=== PATIENT | male | born 1955 | race African-American/Black ===

== ENCOUNTER 2024-03-11 15:51 | Outpatient (REF) | payer MEDICARE, SELFPAY ==
[2024-03-11 17:27] LABS: MANUAL DIFF FLAG NO
[2024-03-11 17:37] LABS: Basophils Absolute Auto 0.1 X10*3/uL (0.0-0.2); Basophils Percent Auto 1.2 % (0-2); Eosinophils Absolute Auto 0.2 X10*3/uL (0.0-0.4); Eosinophils Percent Auto 3.3 % (0-4); Hematocrit 30.7 % (42.0-52.0); Hemoglobin 9.7 g/dl (14.0-18.0); Imm Gran Abs Auto 0.01 X10*3/uL (0.00-0.03); Imm Gran Pct Auto 0.2 % (0.0-0.4); Lymphocytes Absolute Auto 1.5 X10*3/uL (1.2-4.9); Lymphocytes Percent Auto 22.7 % (20-40); Mean Corpuscular HGB Conc 31.6 g/dl (31.0-36.0); Mean Corpuscular Hemoglobin 25.3 pg (27.0-33.0); Mean Corpuscular Volume 79.9 fL (80.0-98.0); Mean Platelet Volume 9.8 fL (9.4-12.4); Monocytes Absolute Auto 0.7 X10*3/uL (0.1-1.2); Monocytes Percent Auto 10.2 % (2-11); Neutrophils Absolute Auto 4.1 x10*3/uL (2.0-8.3); Neutrophils Percent Auto 62.4 % (45-73); Platelet Count 456 X10*3/uL (160-400); Red Blood Count 3.84 X10*6/uL (4.60-5.80); Red Cell Distribution Width 19.8 % (11.0-16.0); White Blood Count 6.6 X10*3/uL (4.8-10.8)
[2024-03-11 17:46] LABS: C Reactive Protein < 0.10 mg/dL (< or = 0.50); Uric Acid 4.2 mg/dL (3.4-7.0)
[2024-03-11 18:28] LABS: Erythrocyte Sedimentation Rate 30 MM/HR (0-15)
== END 2024-03-11 15:52 | disposition home or self-care (01) ==
LOC: HO.CHCLDS 15:51
PROVIDERS: Visit Provider Internal Medicine
DX: M25.572 Pain in left ankle and joints of left foot (principal)
CPT/HCPCS: 36415; 84550; 85025; 85652; 86140

== ENCOUNTER 2024-03-18 15:40 | Outpatient (REF) | payer MEDICARE, SELFPAY ==
[2024-03-18 17:28] LABS: Immature Retic Fraction 20.9 % (2.3-13.4); Retic HGB Equivalent 25.8 pg (30.0-35.0); Reticulocyte Percent 1.1 % (0.5-1.8); Reticulocytes Absolute 0.041 X10*6/uL (0.026-0.095)
[2024-03-18 17:44] LABS: Iron 16 mcg/dL (45-160); Percent Iron Saturation 4 % (15-50); Total Iron Binding Capacity 383 mcg/dL (228-428); Unsaturated Iron Binding 367 ug/dL
[2024-03-18 17:58] LABS: Ferritin 8 ng/mL (20-250)
[2024-03-18 18:13] LABS: Folate 12.2 ng/mL (> or = 4.0); Vitamin B12 704 pg/mL (200-900)
== END 2024-03-18 15:41 | disposition home or self-care (01) ==
LOC: HO.CHCLDS 15:40
PROVIDERS: Visit Provider Internal Medicine
DX: D50.9 Iron deficiency anemia, unspecified (principal)
CPT/HCPCS: 36415; 82607; 82728; 82746; 83540; 85045

== ENCOUNTER 2024-03-21 10:18 | Outpatient (REF) | payer MEDICARE, SELFPAY ==
--- NOTE | ~2024-03-21 | XR_ITS ---
EXAMINATION: XR ANKLE, LEFT CLINICAL INFORMATION: Left ankle pain, cramping, swelling, toes are numb. COMPARISON: None available. TECHNIQUE: AP, lateral, and mortise views of the left ankle. FINDINGS: Mild hypertrophic change along the posterior aspect of the calcaneus. Soft tissue swelling. Tiny faint calcific/ossific densities along the dorsal aspect of the talar neck and navicular of indeterminate age and etiology. Ankle mortise is preserved. XR/XR ankle LT min 3V IMPRESSION: Tiny faint calcific/ossific densities along the dorsal aspect of the talar neck and navicular of indeterminate age and etiology. This study was presented today March 21, 2024 for interpretation. Stat results provided at this time as requested by referring provider. Electronically signed by: Jazzy Walker MD 03/21/2024 01:07 PM EDT
== END 2024-03-21 10:19 | disposition home or self-care (01) ==
LOC: HO.HHCX 10:18
PROVIDERS: Visit Provider Internal Medicine
DX: M25.572 Pain in left ankle and joints of left foot (principal)
CPT/HCPCS: 73610

== ENCOUNTER 2024-04-04 12:09 | Outpatient (REF) | payer MEDICARE, SELFPAY | END 2024-04-04 12:10 | disposition home or self-care (01) | LOC: HO.HMGCX 12:09 | PROVIDERS: PCP Internal Medicine; Visit Provider Internal Medicine | DX: N28.89 Other specified disorders of kidney and ureter (principal) | CPT/HCPCS: 76775 ==

== ENCOUNTER 2024-05-24 12:36 | Outpatient (REF) | payer MEDICARE, SELFPAY ==
[2024-05-24 14:56] LABS: Anion Gap 11 (12-20); Blood Urea Nitrogen 11 mg/dL (9-16); Calcium 9.5 mg/dL (8.4-10.2); Carbon Dioxide 29 mmol/L (22-29); Chloride 108 mmol/L (96-108); Estimated Glomerular Filt Rate > 60; Glucose Random 101 mg/dL (60-115); Potassium 3.9 mmol/L (3.3-5.1); Sodium 144 mmol/L (135-145)
== END 2024-05-24 12:37 | disposition home or self-care (01) ==
LOC: HO.CHCLDS 12:36
PROVIDERS: Visit Provider Internal Medicine
DX: N28.1 Cyst of kidney, acquired (principal)
CPT/HCPCS: 36415; 80048

== ENCOUNTER → 2024-06-20 10:51 | Outpatient (REF) | payer MEDICARE, SELFPAY ==
--- NOTE | 2024-06-20 10:55 | CA_ITS ---
Transthoracic Echocardiogram Patient (Last, First, Middle): Kris Mitchell W Gender: Male Date of : 1955 Age: 69 Procedure Date: 06/20/2024 Procedure Type: Transthoracic Echocardiogram Location: OP Height: 185.42 cm Weight: 60.78 kg BSA: 1.82 m2 Heart Rate: 81 bpm BP: 140 / 80 mmHg [facility] Physician: SB Referring MD: Abida Cordova MD Wood Machine Carver: Mehdi Humphrey MD Symptoms: BI LAT LOWER LIMB EDEMA Study Quality: Adequate ECG Rhythm: Sinus Conclusions: - 1. Normal LV ejection fraction of 65-70% 2. Normal cardiac valvular Dopplers 3. Normal RV systolic pressure 4. No gross pericardial effusion Findings Left Ventricle Normal left ventricular size, thickness, and systolic function. The visually estimated ejection fraction is between 65-70%. Spectral Doppler is indicative of a normal filling pattern. Right Ventricle Normal right ventricular cavity size and systolic function. Atria Both atria are normal in size. There is an interatrial septal aneurysm seen bowing to the right. There is a mobile atrial septum noted. Interatrial shunt cannot be excluded. Aortic Valve Normal aortic valve structure and function. There is no aortic valve stenosis. There is no aortic valve regurgitation. Mitral Valve Normal mitral valve structure and function. There is trace mitral valve regurgitation. There is no mitral valve stenosis. Pulmonic Valve The pulmonic valve is likely normal. Tricuspid Valve Normal tricuspid valve structure. There is mild tricuspid valve regurgitation. The right ventricular systolic pressure is normal. The right ventricular systolic pressure is 30 mmHg. Normal right atrial pressure. There is no evidence of pulmonary hypertension. Great Vessels All visible segments of the aorta are normal in size. The pulmonary artery was not well visualized. There is no dilatation of the ascending aorta measuring 2.80 cm. Venous The inferior vena cava is normal in size and collapses greater than 50% with inspiration. Pericardium/Pleural There is no evidence of pericardial effusion. Prior Study Comparison No prior study available for comparison. Recommendations, Care & Conclusions Recommend contrast study to evaluate intracardiac shunting. Measurements 2D Linear Measurements IVSd: 1.00 0.6-0.9/0.6-1.0 cm LVIDd: 4.15 3.9-5.3/4.2-5.9 cm LVIDd Index: 2.28 2.4-3.2/2.2-3.1 cm/m2 LVIDs: 2.99 2.0-3.6 cm LVPWd: 0.84 0.7-1.1 cm LA Diam: 3.00 2.7-3.8/3.0-4.0 cm LAIDs Index: 1.65 1.5-2.3 cm/m2 LV Mass: 149.41 67-162/88-224 g LV Mass Index: 82.09 43-95/49-115 g/m2 LVOT Diam: 1.90 3.0+(-)1.3 cm 2D Systolic Function EF 4C: 64.40 >55% EF 2C: 73.90 >55% EF BiP: 69.80 >55% Mitral Valve MV Pk E: 0.75 MV PK A: 0.54 MV Decel Time: 223.00 E/A: 1.40 E'Lateral: 8.59 E'Medial: 7.18 E/E' Med: 10.40 E/E' Lat: 8.70 PHT: 65.00 MVA PHT: 3.38 Decel [place]: 3.36 Aortic Valve AoV Pk Ranulfo: 1.07 AoV Pk Grad: 5.00 MAXIME: 2.62 LVOT LVOT Pk Ranulfo: 0.98 LVOT Mn Ranulfo: 0.64 LVOT VTI: 0.19 LVOT Pk Grad: 4.00 LVOT Mn Grad: 2.00 LVOT Diam: 1.90 LVOT Area: 2.84 Diastolic Function MV Pk E: 0.75 MV Pk A: 0.54 E/A: 1.40 E'Medial: 7.18 E/E' Med: 10.40 E' Laterial: 8.59 E/E' Lat: 8.70 Right Ventricle TAPSE (mm): 26.10 TVS' Ranulfo: 13.60 Tricuspid Valve TR Pk Ranulfo: 2.60 TR Pk Grad: 27.00 RA Press: 3.00 RVSP: 30.00 Great Vessels Aorta Sinus of Valsalva: 3.10 2.0-3.5 cm Ao Asc: 2.80 2.1-3.4 cm Pulmonary Valve PV Pk Ranulfo: 1.32 Peak PV Grad: 7.00 Updated in Other Vendor System with Status of Final Mehdi Humphrey MD electronically signed on 06/21/2024 4:48:43 PM with status of Final
== END ==
LOC: HO.CARD 10:51
PROVIDERS: Visit Provider Internal Medicine
DX: R60.0 Localized edema (principal)
CPT/HCPCS: 93306

== ENCOUNTER → 2024-06-20 10:55 | Outpatient (BNV) | payer MEDICARE, SELFPAY | PROVIDERS: Visit Provider Internal Medicine Cardiovascular Disease | DX: Q21.19 Other specified atrial septal defect (principal); I25.3 Aneurysm of heart; I36.1 Nonrheumatic tricuspid (valve) insufficiency | CPT/HCPCS: 93303; 93320; 93325 ==

== ENCOUNTER 2024-08-26 14:00 | Outpatient (REF) | payer MEDICARE, SELFPAY ==
[2024-08-26 17:58] LABS: MANUAL DIFF FLAG NO
[2024-08-26 18:04] LABS: Basophils Percent Auto 0.4 % (0-2); Eosinophils Percent Auto 0.3 % (0-4); Hematocrit 31.7 % (42.0-52.0); Hemoglobin 10.7 g/dl (14.0-18.0); Imm Gran Abs Auto 0.02 X10*3/uL (0.00-0.03); Imm Gran Pct Auto 0.2 % (0.0-0.4); Lymphocytes Percent Auto 11.3 % (20-40); Mean Corpuscular HGB Conc 33.8 g/dl (31.0-36.0); Mean Corpuscular Hemoglobin 31.3 pg (27.0-33.0); Mean Corpuscular Volume 92.7 fL (80.0-98.0); Mean Platelet Volume 10.1 fL (9.4-12.4); Monocytes Absolute Auto 0.7 X10*3/uL (0.1-1.2); Monocytes Percent Auto 8.2 % (2-11); Neutrophils Absolute Auto 7.1 x10*3/uL (2.0-8.3); Neutrophils Percent Auto 79.6 % (45-73); Platelet Count 436 X10*3/uL (160-400); Red Blood Count 3.42 X10*6/uL (4.60-5.80); Red Cell Distribution Width 17.2 % (11.0-16.0); White Blood Count 8.9 X10*3/uL (4.8-10.8)
[2024-08-26 18:16] LABS: Alanine Aminotransferase 34 U/L (0-40); Albumin Level 3.6 g/dL (3.5-5.0); Alkaline Phosphatase 43 U/L (39-117); Anion Gap 10 (12-20); Aspartate Amino Transferase 38 U/L (5-37); Bilirubin Total 0.3 mg/dL (0.0-1.0); Blood Urea Nitrogen 24 mg/dL (9-16); Calcium 9.3 mg/dL (8.4-10.2); Carbon Dioxide 27 mmol/L (22-29); Chloride 107 mmol/L (96-108); Estimated Glomerular Filt Rate > 60; Glucose Random 111 mg/dL (60-115); Potassium 3.7 mmol/L (3.3-5.1); Sodium 140 mmol/L (135-145)
== END 2024-08-26 14:01 | disposition home or self-care (01) ==
LOC: HO.CHCLDS 14:00
PROVIDERS: Visit Provider Internal Medicine
DX: I73.9 Peripheral vascular disease, unspecified (principal); R63.6 Underweight
CPT/HCPCS: 36415; 80053; 85025

== ENCOUNTER 2024-10-17 11:39 | Outpatient (REF) | payer MEDICARE, SELFPAY ==
--- OUTSIDE RECORDS SUMMARY | 2024-10-17 12:26 | XMS_ITS | Clinical Summary ---
Author Organization [employer] Address [address] [facility] [address] [place] [address] Care Team Providers Care Credit Report Checker Name Role Phone Abida Cordova MD Primary Care Provider +1- [phone] Allergies No known active allergies Medications Blood Pressure kitIndications: Elevated BP without diagnosis of hypertension BP check daily. Keep the log for the next visit. 1 kit 03/11/20 Active doxepin (SINEquan) 10 MG capsuleIndicati ons:Primary insomnia Take 1 capsule (10 mg) by mouth at bedtime. 30 capsule 03/18/20 24 025 Active gabapentin (Neurontin) 100 MG capsuleIndicati ons:Neural foraminal stenosis of lumbar spine Take 2 capsules (200 mg) by mouth 2 times daily. 120 capsule 11 05/24/20 24 025 Active aspirin 81 MG EC tabletIndicatio ns:Claudication (CMS/HCC) Take 1 tablet (81 mg) by mouth Once per day. 30 tablet 07/07/19 25 026 Active cilostazol (Pletal) 100 MG tabletIndicatio ns:Claudication (CMS/HCC) Take 1 tablet (100 mg) by mouth 2 times daily. 60 tablet 07/07/19 25 026 Active amLODIPine (Norvasc) 5 MG tabletIndicatio ns:Primary hypertension Take 1 tablet (5 mg) by mouth Once per day. 30 tablet 11 07/07/19 25 026 Active ferrous sulfate 324 (65 Fe) MG EC tabletIndicatio ns:Other iron deficiency anemia TAKE 1 TABLET (324 MG) BY MOUTH WITH BREAKFAST. 30 tablet 3 07/19/19 25 Active Nutritional Supplements (Ensure)Indicat ions:Underweigh t 237 ml 2 times a day 29338 mL 12 09/22/19 25 Active tiZANidine (Zanaflex) 4 MG tabletIndicatio ns:Neural foraminal stenosis of lumbar spine Take 1 tablet (4 mg) by mouth every 8 (eight) hours if needed for muscle spasms. 60 tablet 3 09/22/19 25 Active Hydroactive Dressings (DynaDerm Hydrocolloid 2 x2 ) miscIndications :Pressure injury of right hip, stage 1 Apply 1 each topically every other day. To apply to the right hip on the wound after cleansing with normal saline every other day 30 each 1 08/27/19 25 Active tiZANidine (Zanaflex) 4 MG tabletIndicatio ns:Neural foraminal stenosis of lumbar spine Take 0.5 tablets (2 mg) by mouth every 8 (eight) hours if needed for muscle spasms. 90 tablet 3 08/27/19 25 Active oxyCODONE-aceta minophen (Percocet) 10-325 MG tabletIndicatio ns:Neural foraminal stenosis of lumbar spine Take 1 tablet by mouth every 6 (six) hours if needed for severe pain for up to 10 days. 40 tablet 10/12/19 25 025 Active traMADol (Ultram) 50 MG tabletIndicatio ns:Neural foraminal stenosis of lumbar spine Take 1 tablet (50 mg) by mouth every 8 (eight) hours if needed for severe pain. 40 tablet 08/23/19 25 025 Discontinued bisacodyl (Dulcolax) 5 MG EC tabletIndicatio ns:Drug-induced constipation Take 1 tablet (5 mg) by mouth if needed each day for constipation . Do not crush, chew, or split. 30 tablet 08/27/19 25 025 traMADol (Ultram) 50 MG tabletIndicatio ns:Neural foraminal stenosis of lumbar spine Take 1 tablet (50 mg) by mouth every 6 (six) hours if needed for severe pain. 45 tablet 09/06/19 25 025 Discontinued( erapy completed) oxyCODONE-aceta minophen (Percocet) 10-325 MG tabletIndicatio ns:Claudication (CMS/HCC),Sciat ica, left side Take 1 tablet by mouth every 6 (six) hours if needed for severe pain for up to 5 days. 15 tablet 09/16/19 25 025 Discontinued(Re order (will not trigger notification to Pharmacy)) oxyCODONE-aceta minophen (Percocet) 10-325 MG tabletIndicatio ns:Claudication (CMS/HCC),Sciat ica, left side Take 1 tablet by mouth every 8 (eight) hours if needed for severe pain for up to 10 days. 30 tablet 09/23/19 25 025 Active Problems Patient Care Coordination No te Formatting of this note migh t be different from the original. Problem Noted Date Diagnosed Date Primary hypertension 05/24/2024 Microcytic anemia 03/18/2024 Sciatica, left side 03/11/2024 Encounters Date Type Department Care Team Description 10/11/2024 Orders Only [facility] [address] [place] [address] Abida Cordova MD Neural foraminal stenosis of lumbar spine (Primary Dx) 10/03/2024 Orders Only [facility] [address] [place] [address] Abida Cordova MD PVD (peripheral vascular disease) with claudication (CMS/HCC) (Primary Dx) 10/03/2024 Telephone [facility] [address] [place] [phone] Abida Cordova MD Med Refill 09/29/2024 Telephone [facility] [address] [place] [address] Abida Cordova MD Pre op 09/22/2024 Telephone [facility] [address] [place] [address] Abida Brennan MD Med Refill 09/15/2024 Orders Only [facility] [address] [place] [address] Abida Cordova MD Claudication (CMS/HCC); Sciatica, left side 09/15/2024 Telephone [facility] [address] [place] [address] Abida Cordova MD Medication Question 09/13/2024 3:15 PM EDT Office Visit [facility] [address] [place] [address] Abida Cordova MD Claudication ([facility]) (Primary Dx); Sciatica, left side 09/13/2024 Travel 09/08/[address] [address] Abida Cordova MD Nurse Triage 09/06/[address] [address] Abida Cordova MD FMLA 09/05/2024 Refill [facility] [address] [place] [address] Abida Cordova MD Neural foraminal stenosis of lumbar spine 09/03/2024 Refill [facility] [address] [place] [address] Abida Cordova MD Neural foraminal stenosis of lumbar spine 08/30/2024 Telephone [facility] [address] [place] [address] Abida Cordova MD BHS Cancelled Appt 08/26/2024 1:30 PM EDT Office Visit [facility] [address] [place] [address] Abida Cordova MD Claudication ([facility]) (Primary Dx); Low weight; Microcytic anemia; Drug-induced constipation; Pressure injury of right hip, stage 1; Neural foraminal stenosis of lumbar spine; Primary hypertension 08/26/2024 Travel 08/22/2024 Travel 08/22/2024 Refill [facility] [address] [place] [address] Abida Cordova MD Neural foraminal stenosis of lumbar spine 08/22/2024 Orders Only [facility] [address] [place] [address] Abida Cordova MD Underweight (Primary Dx); Neural foraminal stenosis of lumbar spine 08/22/2024 Telephone [facility] [address] [place] [address] Abida Cordova MD Medication Question 08/21/2024 Refill [facility] [address] [place] [address] Abida Cordova MD Neural foraminal stenosis of lumbar spine 08/20/2024 Refill [facility] [address] [place] [address] Abida Cordova MD Neural foraminal stenosis of lumbar spine 08/19/2024 Refill [facility] [address] [place] [address] Abida Cordova MD Neural foraminal stenosis of lumbar spine 08/12/2024 Telephone [facility] [address] [place] [address] Ann Marie Salazar, DANNY 08/12/2024 Refill [facility] [address] [place] [address] Abida Cordova MD Neural foraminal stenosis of lumbar spine 08/10/[address] [address] Abida Cordova MD Med Refill 08/10/2024 Refill [facility] [address] [place] [address] Abida Cordova MD Neural foraminal stenosis of lumbar spine 08/08/2024 Telephone [facility] [address] [place] [address] Abida Cordova MD Med Refill; chain splitter 08/08/2024 Refill [facility] [address] [place] [address] Abida Cordova MD Neural foraminal stenosis of lumbar spine 07/23/2024 Refill [facility] [address] [place] [address] Abida Cordova MD Neural foraminal stenosis of lumbar spine from Last 3 Months Immunizations Immunization Administration Dates Next Due Tdap 03/11/2024 Social History Tobacco Use Types Packs/Day Years Used Date Smoking Tobacco: Never Smokeless Tobacco: Never Tobacco Cessation:Counseling Given: Not Answered Depression Answer Date Recorded Patient Health Questionnaire-9 Score 0 08/26/2024 Patient Health Questionnaire-9 Score 0 08/26/2024 Last PHQ-9: Questionnaire Data Not on file 0 08/26/2024 Housing Stability Answer Date Recorded What is your housing situation today? I have magdalena acuna 08/26/[address] you li ve. Do you have problems with any of the following? None of the above 08/26/2024 Food Insecurity Answer Date Recorded Within the past 12 months, y ou worried that your food would run out before you got money to buy more: Never True 08/26/2024 Within the past 12 months,th e food you bought just didn't last and you didn't have enough money to get more: Never True Transportation Answer Date Recorded In the past 12 months, has l ack of transportation kept you from medical appts, meetings, work or from getting things needed for daily living? No 08/26/2024 Utilities Answer Date Recorded In the past 12 months, has t he electric, gas, oil or water company threatened to shut off services in your home? No 08/26/2024 Depression Answer Date Recorded Patient Health Questionnaire-2 Score 0 08/26/2024 Internet Access Answer Date Recorded Internet Access Q1 Yes 08/26/2024 Internet Access Q2 Not on file 08/26/2024 Sex and Gender Information Value Date Recorded Sex Assigned at Male 02/09/2024 9:02 AM EDT Legal Sex Male 8:56 AM EDT Gender Identity Male 02/09/2024 9:02 AM EDT Sexual Orientation Straight 02/09/2024 9: 02 AM EDT Last Filed Vital Signs Vital Sign Reading Time Taken Comments Blood Pressure 147/90 09/13/2024 3:34 PM EDT Pulse 134 09/13/2024 3:34 PM EDT Temperature 36.7 ??C (98 ??F) 09/13/2024 3:34 PM EDT Respiratory Rate 20 09/13/2024 3:34 PM EDT Oxygen Saturation 95% 09/13/2024 3:34 PM EDT Inhaled Oxygen Concentration - - Weight 54.4 kg (120 lb) 09/13/2024 3:34 PM EDT Height 185.4 cm (6' 1 ) 09/13/2024 3:34 PM EDT Body Mass Index 15.83 09/13/2024 3:34 PM EDT Plan of Treatment Upcoming Encounters Date Type Department Care Team (Late st Contact Info) Description 10/27/2024 9:30 AM EDT Office Visit [facility] [address] [place] [address] Arianna Castro MD [address] [place] [address] 11/14/2024 3:30 PM EDT Office Visit [facility] [address] [place] [address] Abida Cordova MD [address] [place] [address] Health Maintenance Due Date Last Done Comments CT Colonography 1955 Colonoscopy 1955 Colorectal Cancer Screening 1955 FIT DNA/Cologuard 1955 FIT 1955 FOBT 1955 Lipid Panel 1955 Sigmoidoscopy 1955 Hepatitis C Screening 1971 Zoster Vaccines (1 of 2) 2003 Influenza Vaccine (#1) 2024 Postp oned from 01/31/2024 (Patient Refused) COVID-19 Vaccine (3 - 2023-2 5 season) 2025 10/14/2020, 09/23/2020 Postponed from 01/31/2024 (Patient Refused) Pneumococcal Vaccine: 50+ Years (1 of 1 - PCV) 03/11/2025 Postponed from 10/2002 (Patient Refused) Alcohol/Substance Use Screening 08/26/2025 08/26/2024 Depression Screening 08/26/2025 08/26/2024, 08/26/2024 SDOH Screening 08/26/2025 08/26/2024 Tobacco Screening 09/13/2025 09/13/2024 RSV Patients and Patients Aged 60 years or older (1 - 1-dose 75+ series) 02/05/2028 DTaP/Tdap/Td Vaccines (2 - T d or Tdap) 03/11/2034 03/11/2024 HIB Vaccines Aged Out No longer eligi ble based on patient's age to complete this topic HPV Vaccines Aged Out No longer eligi ble based on patient's age to complete this topic Hepatitis A Vaccines Aged Out No long er eligible based on patient's age to complete this topic Hepatitis B Vaccines Aged Out No long er eligible based on patient's age to complete this topic IPV Vaccines Aged Out No longer eligi ble based on patient's age to complete this topic Meningococcal B Vaccine Aged Out No l onger eligible based on patient's age to complete this topic Meningococcal Vaccine Aged Out No sam nick eligible based on patient's age to complete this topic RSV under 20 months Aged Out No longe r eligible based on patient's age to complete this topic Rotavirus Vaccines Aged Out No longer eligible based on patient's age to complete this topic Procedures Procedure Name Priority Date/Time Associated Diagnosis Comments COMPREHENSIVE METABOLIC PANEL Routine 08/26/2024 2:01 PM EDT Claudication (CMS/HCC) Low weight CBC WITH AUTO DIFFERENTIAL Routine 08/26/2024 2:01 PM EDT Claudication (CMS/HCC) Low weight from Last 3 Months Results * (ABNORMAL) CBC auto differential (08/26/2024 2:01 PM EDT) White Blood Count 8.9 4.8 - 10.8 X10*3/uL [facility] Red Blood Count 3.42(L) 4.60 - 5.80 X10*6/uL [facility] Hemoglobin 10.7(L) 14.0 - 18.0 g/dl [facility] Hematocrit 31.7(L) 42.0 - 52.0 % [facility] Mean Corpuscular Volume 92.7 80.0 - 98.0 fL [facility] Mean Corpuscular Hemoglobin 31.3 27.0 - 33.0 pg [facility] Mean Corpuscular HGB Conc 33.8 31.0 - 36.0 g/dl [facility] Red Cell Distribution Width 17.2(H) 11.0 - 16.0 % [facility] Platelet Count 436(H) 160 - 400 X10*3/uL [facility] Mean Platelet Volume 10.1 9.4 - 12.4 fL [facility] Neutrophils Percent Auto 79.6(H) 45 - 73 % [facility] Imm Gran Pct Auto 0.2 0.0 - 0.4 % [facility] Lymphocytes Percent Auto 11.3(L) 20 - 40 % [facility] Monocytes Percent Auto 8.2 2 - 11 % [facility] Eosinophils Percent Auto 0.3 0 - 4 % [facility] Basophils Percent Auto 0.4 0 - 2 % [facility] NRBC Pct Auto 0.0 0.0 - 0.2 /100WBC [facility] Neutrophils Absolute Auto 7.1 2.0 - 8.3 x10*3/uL [facility] Imm Gran Abs Auto 0.02 0.00 - 0.03 X10*3/uL [facility] Lymphocytes Absolute Auto 1.0(L) 1.2 - 4.9 X10*3/uL [facility] Monocytes Absolute Auto 0.7 0.1 - 1.2 X10*3/uL [facility] Eosinophils Absolute Auto 0.0 0.0 - 0.4 X10*3/uL [facility] Basophils Absolute Auto 0.0 0.0 - 0.2 X10*3/uL [facility] NRBC Abs Auto 0.000 0.0 - 0.012 X10*3/uL [facility] Blood Venous blood specimen / Unknown 08/26/2024 2:01 PM EDT 08/26/2024 5:57 PM EDT us Abida Cordova MD LAB BLOOD ORDERABLES Final Result Performing Organization Address City/[facility]/ZIP Co de Phone Number [facility] [address] [place] [address] [phone] * (ABNORMAL) Comprehensive Metabolic Panel (08/26/2024 2:01 PM EDT) Sodium 140 135 - 145 mmol/L [facility] Potassium 3.7 3.3 - 5.1 mmol/L [facility] Chloride 107 96 - 108 mmol/L [facility] Carbon Dioxide 27 22 - 29 mmol/L [facility] Anion Gap 10(L) 12 - 20 [facility] Urea Nitrogen (BUN) 24(H) 9 - 16 mg/dL [facility] Creatinine, Serum 0.82 0.5 - 1.4 mg/dL [facility] Estimated Glomerular Filt Rate >60 [facility] Comment:Chronic Kidney Disea se: Estimated GFR < 60 mL/min/[id number] Kidney Disease: Estimated GFR < 15 mL/min/1.73m2 Glucose 111 60 - 115 mg/dL [facility] Calcium 9.3 8.4 - 10.2 mg/dL [facility] Bilirubin, Total 0.3 0.0 - 1.0 mg/dL [facility] Aspartate Amino Transferase 38(H) 5 - 37 U/L [facility] Alanine Aminotransferase 34 0 - 40 U/L [facility] Total Protein 7.0 6.5 - 8.0 g/dL [facility] Albumin Level 3.6 3.5 - 5.0 g/dL [facility] Alkaline Phosphatase 43 39 - 117 U/L [facility] Blood Venous blood specimen / Unknown 08/26/2024 2:01 PM EDT 08/26/2024 5:57 PM EDT us Abida Cordova MD LAB BLOOD ORDERABLES Final Result [facility] [address] [place] [address] [phone] from Last 3 Months Insurance [facility] MEDICARE REPLACEMENT PPO Care Teams Credit Report Checker Relationship Specialty Start Date End Date Abida Cordova MD [address] [place] [id number] PCP - General Internal Medicine 03/11/24
--- OUTSIDE RECORDS SUMMARY | 2024-10-17 12:26 | XMS_ITS | Encounter Summary ---
Author Organization [facility] Address [address] [place] [address] [address] [address] Care Team Providers Care Garment Parts Cutter Hand Name Role Phone Abida Cordova MD Primary Care Provider [phone]- [phone] Reason for Visit * Reason Onset Date Comments Med Refill 06/13/2024 Encounter Details Date Type Department Care Team (Late st Contact Info) Description 06/13/2024 Refill [facility] [address] [place] [address] Abida Cordova MD [address] [place] [address] Neural foraminal stenosis of lumbar spine Social History Tobacco Use Types Packs/Day Years Used Date Smoking Tobacco: Never Smokeless Tobacco: Never Sex and Gender Information Value Date Recorded Sex Assigned at Male 02/09/2024 9:02 AM EDT Legal Sex Male 8:56 AM EDT Gender Identity Male 02/09/2024 9:02 AM EDT Sexual Orientation Straight 02/09/2024 9: 02 AM EDT documented as of this encounter Plan of Treatment Upcoming Encounters Date Type Department Care Team (Late st Contact Info) Description 10/27/2024 9:30 AM EDT Office Visit [facility] [address] [place] [address] Arianna Castro MD [address] [place] [address] 11/14/2024 3:30 PM EDT Office Visit [facility] [address] [place] [address] Abida Cordova MD [address] [place] [address] documented as of this encounter Visit Diagnoses Diagnosis Neural foraminal stenosis of lumbar spine documented in this encounter Care Teams Garment Parts Cutter Hand Relationship Specialty Start Date End Date Abida Cordova MD [address] [place] [address] PCP - General Internal Medicine 03/11/24 documented as of this encounter
--- OUTSIDE RECORDS SUMMARY | 2024-10-17 12:26 | XMS_ITS | Encounter Summary ---
Author Organization [facility] Address [address] [place] [address] [address] [address] Care Team Providers Care Deaf And Hard Of Hearing Teacher Name Role Phone Abida Cordova MD Primary Care Provider +1- [phone] Reason for Visit * Reason Onset Date Comments Med Refill 06/26/2024 Encounter Details Date Type Department Care Team (Late st Contact Info) Description 06/26/2024 Refill [facility] [address] [place] [address] Abida Cordova MD [address] [place] [address] Neural foraminal stenosis of lumbar spine Social [...] Description 10/27/2024 9:30 AM EDT Office Visit [facility] [address] [place] [address] Arianna Castro MD [address] [place] [address] 11/14/2024 3:30 PM EDT Office Visit [facility] [address] [place] [address] Abida Cordova MD [address] [facility] [place] [address] documented as of this encounter Visit Diagnoses Diagnosis Neural foraminal stenosis of lumbar spine documented in this encounter Care Teams Deaf And Hard Of Hearing Teacher Relationship Specialty Start Date End Date Abida Cordova MD [address] [facility] [place] [address] PCP - General Internal Medicine 03/11/24 documented as of this encounter
--- OUTSIDE RECORDS SUMMARY | 2024-10-17 12:26 | XMS_ITS | Encounter Summary ---
Author Organization [employer] Address [address] [facility] [address] [address] Care Team Providers Care Builder'S Labourer Name Role Phone Abida Cordova MD Primary Care Provider [phone] Reason for Referral * Consultation (Routine) - Closed Specialty Diagnoses / Procedures Referred By Kristel paredes Referred To Contact Pain Medicine Diagnoses Sciatica, left side Abida Cordova MD [address] [place] [address] Phone: tel: fax: [facility] [address] [facility] [address] [place] [address] Phone: tel: fax: Referral ID Status Reason Start Date Expiration Date V isits Requested Visits Authorized [id number] Closed Specialty Services Required 03/25/2024 03/25/2025 1 1 * Imaging (Routine) - Closed Specialty Diagnoses / Procedures Referred By Kristel paredes Referred To Contact Radiology Diagnoses Left renal mass Procedures US RENAL BI Abida Cordova MD [address] [place] [address] Phone: tel: fax: [address] Phone: tel: fax: Referral ID Status Reason Start Date Expiration Date Visits Re quested Visits Authorized [id number] Closed 03/25/2024 03/25/2025 1 1 Encounter Details Date Type Department Care Team (Late Contact Info) Description 03/21/2024 Orders Only [facility] [address] [place] [address] Abida Cordova MD [address] [place] [address] Other iron deficiency anemia (Primary Dx); Left renal mass; Sciatica, left side Social History Tobacco Use Types Packs/Day Years [...] Encounters Date Type Department Care Team (Late Contact Info) Description 10/27/2024 9:30 AM EDT Office Visit [facility] [address] [place] [address] Arianna Castro MD [address] [place] [address] 11/14/2024 3:30 PM EDT Office Visit [facility] [address] [place] [address] Abida Cordova MD [address] [place] [address] Scheduled Referrals Name Type Priority Associated Diagnoses Orde r Schedule Referral to Pain Medicine Outpatient Referral Routine Sciatica, left side Expected: 03/25/2024 (Approximate), Expires: 03/25/2025 documented as of this encounter Procedures Procedure Name Priority Date/Time Associated Diagnosis Comments US RENAL BI Routine 04/04/2024 12:10 PM EST Left renal mass XR ANKLE 3+ VIEWS LEFT Routine 03/21/2024 10:21 AM EDT documented in this encounter Results * US RENAL BI (04/04/2024 12:10 PM EST) Anatomical Region Laterality Modality Abdomen Ultrasound 04/04/2024 12:1 0 PM EST Narrative 06/08/2024 4:55 AM EST ? [facility] ?[address] [facility] . ? [place] [address] ? Ultrasound Report ? Signed ? Patient: Mitchell,Ponce W ?MR#: [id number] ?? [id number] ? : 1955 ?Acct:[id number] ? Age/Sex: 69 / M ?ADM Date: 04/04/24 ? Loc: HO.HMGCX ? Attending Dr: Abida Cordova MD ? Ordering Physician: Abida Cordova MD ?? Date of Service: 04/04/24 ?? Procedure(s): US renal BI ?? Accession Number(s): [id number] ? cc: Abida Cordova MD ? EXAMINATION: ?? US RETROPERITONEAL LIMITED (RENAL ONLY) ? CLINICAL INFORMATION: ?? Question renal mass on MRI of lumbar spine. ? COMPARISON: ?? None available. ? TECHNIQUE: ?? Real-time imaging of the kidneys. ? Limited visualization due to bowel gas. ? FINDINGS: ? RIGHT KIDNEY: 10.1 x 4.2 x 6.0 cm (SAG x AP x TRV). No hydronephrosis. ?? No renal calculi. Renal cortical thickness is normal. Limited ?? visualization. ? LEFT KIDNEY: 9.6 x 4.5 x 4.9 cm (SAG x AP x TRV). No hydronephrosis. No ?? renal calculi. Renal cortical thickness is normal. Limited ?? visualization. ? US/US renal BI ?? IMPRESSION: ?? No hydronephrosis. No renal calculi. No definitive renal mass ?? appreciated, although visualization is limited due to bowel gas. Please ?? note that prior MRI report and images are not available at this time. ? CT scan with intravenous contrast employing renal mass protocol ?? recommended for further evaluation of previously reported renal mass. ? Electronically signed by: ??Jazzy Walker MD ??06/08/2024 04:52 AM EST ?? RP ? Dictated By: ?Jazzy Walker MD ? Signed By: ?<Electronically signed by Jazzy Walker MD in OV> ? 06/08/24 0452 ? DD/ 1210 ? TD/TT: 04/04/24 1230 ? Sales Representative Sales Manager: ? Procedure Note Donjustino, Image - 06/08/2024 [facility] [address] Ultrasound Report Signed Patient: Kris Mitchell WMR#: [id number] : 1955cct:[id number] Age/Sex: 69 / MADM Date: 04/04/24 Loc: HO.HMGCX Attending Dr: Abida Cordova MD Ordering Physician: Abida Cordova MD Date of Service: 04/04/24 Procedure(s): US renal BI Accession Number(s): [id number] cc: Abida Cordova MD EXAMINATION: US RETROPERITONEAL LIMITED (RENAL ONLY) CLINICAL INFORMATION: Question renal mass on MRI of lumbar spine. COMPARISON: None available. TECHNIQUE: Real-time imaging of the kidneys. Limited visualization due to bowel gas. FINDINGS: RIGHT KIDNEY: 10.1 x 4.2 x 6.0 cm (SAG x AP x TRV). No hydronephrosis. No renal calculi. Renal cortical thickness is normal. Limited visualization. LEFT KIDNEY: 9.6 x 4.5 x 4.9 cm (SAG x AP x TRV). No hydronephrosis. No renal calculi. Renal cortical thickness is normal. Limited visualization. US/US renal BI IMPRESSION: No hydronephrosis. No renal calculi. No definitive renal mass appreciated, although visualization is limited due to bowel gas. Please note that prior MRI report and images are not available at this time. CT scan with intravenous contrast employing renal mass protocol recommended for further evaluation of previously reported renal mass. Electronically signed by: Jazzy Walker MD 06/08/2024 04:52 AM EST Dictated By: Jazzy Walker MD Signed By: <Electronically signed by Jazzy Walker MD in OV> 06/08/24 0452 DD/ 1210 TD/TT: 04/04/24 1230 Sales Representative Sales Manager: us Abida Cordova MD IMG US PROCEDURES Edited Re sult - Final * XR Ankle 3+ Views Left (03/21/2024 10:21 AM EDT) Anatomical Region Laterality Modality Lower Extremities, Ankle Left Radiogr aphic Imaging 03/21/2024 10:2 1 AM EDT Narrative 03/21/2024 1:10 PM EDT ?[facility] ?[address] ?[place] [address] ?XRay Report ? Signed ? Patient: Mitchell,Ponce W ?MR#: [id number] ?? [id number] ? : 1955 ?Acct:[id number] ? Age/Sex: 69 / M ?ADM Date: 03/21/24 ? Loc: HO.HHCX ? Attending Dr: Abida Cordova MD ? Ordering Physician: Abida Cordova MD ?? Date of Service: 03/21/24 ?? Procedure(s): XR ankle LT min 3V ?? Accession Number(s): [id number] ? cc: Abida Cordova MD ? EXAMINATION: ?? XR ANKLE, LEFT ? CLINICAL INFORMATION: ?? Left ankle pain, cramping, swelling, toes are numb. ? COMPARISON: ?? None available. ? TECHNIQUE: ?? AP, lateral, and mortise views of the left ankle. ? FINDINGS: ?? Mild hypertrophic change along the posterior aspect of the calcaneus. ?? Soft tissue swelling. Tiny faint calcific/ossific densities along the ?? dorsal aspect of the talar neck and navicular of indeterminate age and ?? etiology. Ankle mortise is preserved. ? XR/XR ankle LT min 3V ?? IMPRESSION: ?? Tiny faint calcific/ossific densities along the dorsal aspect of the ?? talar neck and navicular of indeterminate age and etiology. ? This study was presented today March 21, 2024 for interpretation. ?? Stat results provided at this time as requested by referring provider. ? Electronically signed by: ??Jazzy Walker MD ??03/21/2024 01:07 PM EDT ? Dictated By: ?Jazzy Walker MD ? Signed By: ?<Electronically signed by Jazzy Walker MD in OV> ? 03/21/24 1307 ? DD/ 1021 ? TD/TT: 03/21/24 1043 ? Sales Representative Sales Manager: ? Procedure Note Donjustino, Gala - 03/21/2024 [facility] [address] [place] [address] XRay Report Signed Patient: Kris Mitchell WMR#: [id number] : 1955cct:[id number] Age/Sex: 69 / MADM Date: 03/21/24 Loc: HO.HHCX Attending Dr: Abida Cordova MD Ordering Physician: Abida Cordova MD Date of Service: 03/21/24 Procedure(s): XR ankle LT min 3V Accession Number(s): [id number] cc: Abida Cordova MD EXAMINATION: XR ANKLE, LEFT CLINICAL INFORMATION: Left ankle pain, cramping, swelling, toes are numb. COMPARISON: None available. TECHNIQUE: AP, lateral, and mortise views of the left ankle. FINDINGS: Mild hypertrophic change along the posterior aspect of the calcaneus. Soft tissue swelling. Tiny faint calcific/ossific densities along the dorsal aspect of the talar neck and navicular of indeterminate age and etiology. Ankle mortise is preserved. XR/XR ankle LT min 3V IMPRESSION: Tiny faint calcific/ossific densities along the dorsal aspect of the talar neck and navicular of indeterminate age and etiology. This study was presented today March 21, 2024 for interpretation. Stat results provided at this time as requested by referring provider. Electronically signed by: Jazzy Walker MD 03/21/2024 01:07 PM EDT Dictated By: Jazzy Walker MD Signed By: <Electronically signed by Jazzy Walker MD in OV> 03/21/24 1307 DD/ 1021 TD/TT: 03/21/24 1043 Sales Representative Sales Manager: Abida Cordova MD IMG XR PROCEDURES Edited Re karunat - Final documented in this encounter Visit Diagnoses Diagnosis Other iron deficiency anemia- Primary Left renal mass Unspecified disorder of kidney and ureter Sciatica, left side documented in this encounter Care Teams Builder'S Labourer Relationship Specialty Start Date End Date Abida Cordova MD [address] [place] [address] PCP - General Internal Medicine 03/11/24 documented as of this encounter
--- OUTSIDE RECORDS SUMMARY | 2024-10-17 12:26 | XMS_ITS | Encounter Summary ---
Author Organization [employer] [address] [facility] Address [address] [place] [address] [address], [place] [address] Care Team Providers Care Road Machine Operator Name Role Phone Abida Cordova MD Primary Care Provider [phone] Reason for Visit * Reason Onset Date Comments Med Refill 05/15/2024 Encounter Details Date Type Department Care Team (Late st Contact Info) Description 05/15/2024 Refill [facility] MED [facility] PEDS [address] [place] [address] Abida Cordova MD [address] [place] [address] Acute left ankle pain Social History Tobacco Use Types Packs/Day Years [...] Description 10/27/2024 9:30 AM EDT Office Visit [facility] [address] [place] [address] Arianna Castro MD [address] [place] [address] 11/14/2024 3:30 PM EDT Office Visit [facility] [address] [place] [address] Abida Cordova MD [address] [place] [address] documented as of this encounter Visit Diagnoses Diagnosis Acute left ankle pain documented in this encounter Care Teams Road Machine Operator Relationship Specialty Start Date End Date Abida Cordova MD [address] [place] [address] PCP - General Internal Medicine 03/11/24 documented as of this encounter
--- OUTSIDE RECORDS SUMMARY | 2024-10-17 12:26 | XMS_ITS | Encounter Summary ---
Author Organization [employer] Address [address] [facility] 7 [place] [address] Care Team Providers Care Molding Line Operator Name Role Phone Abida Cordova MD Primary Care Provider [phone] Reason for Visit * Reason Comments Med Refill Encounter Details Date Type Department Care Team ([facility] st Contact Info) Description 09/03/2024 Refill [facility] MED & PEDS [address] [place] [address] Abida Cordova MD [address] [place] [address] Neural foraminal stenosis of lumbar spine Social History Tobacco Use Types Packs/Day Years Used Date Smoking Tobacco: Never Smokeless Tobacco: Never Depression Answer Date Recorded Patient Health Questionnaire-9 [...] Description 10/27/2024 9:30 AM EDT Office Visit [facility] MED [facility] PED[facility] [address] [place] [address] Arianna Castro MD [address] [place] [address] 11/14/2024 3:30 PM EDT Office Visit [facility] [address] [place] [address] Abida Cordova MD [address] [place] [address] documented as of this encounter Visit Diagnoses Diagnosis Neural foraminal stenosis of lumbar spine documented in this encounter Additional Health Concerns Assessment Noted Time PHQ-9 Depression Total Score: 0 08/27/19 25 1:31 PM EDT documented as of this encounter Care Teams Molding Line Operator Relationship Specialty Start Date End Date Abida Cordova MD [address] [place] [address] PCP - General Internal Medicine 03/11/24 documented as of this encounter
--- OUTSIDE RECORDS SUMMARY | 2024-10-17 12:26 | XMS_ITS | Encounter Summary ---
Author Organization [employer] Address [address] [place] [address] [place] [address] Care Team Providers Care Marketing Segment Manager Name Role Phone Abida Cordova MD Primary Care Provider [phone]- [phone] Reason for Visit * Reason Onset Date Comments Med Refill 06/16/2024 Encounter Details Date Type Department Care Team (Late st Contact Info) Description 06/16/2024 Refill [facility] MED & PEDS [address] [place] [address] Abida Cordova MD [address] [place] [address] Other iron deficiency anemia; Neural foraminal stenosis of lumbar spine Social [...] Description 10/27/2024 9:30 AM EDT Office Visit [facility] MED & PEDS [address] [place] [address] Arianna Castro MD [address] [place] [address] 11/14/2024 3:30 PM EDT Office Visit [facility] MED & PEDS [address] [place] [address] Abida Cordova MD [address] [place] [address] documented as of this encounter Visit Diagnoses Diagnosis Other iron deficiency anemia Neural foraminal stenosis of lumbar spine documented in this encounter Care Teams Marketing Segment Manager Relationship Specialty Start Date End Date Abida Cordova MD [address] [place] [address] PCP - General Internal Medicine 03/11/24 documented as of this encounter
--- OUTSIDE RECORDS SUMMARY | 2024-10-17 12:26 | XMS_ITS | Encounter Summary ---
Author Organization [employer] [facility] Address [address] [place] [address] [place], [place] [address] Care Team Providers Care Garage Laborer Name Role Phone Abida Cordova MD Primary Care Provider [phone] Reason for Visit * Reason Onset Date Comments Med Refill 06/21/2024 Encounter Details Date Type Department Care Team (Late st Contact Info) Description 06/21/2024 Refill [facility] MED & PEDS [address] [place] [address] Abida Cordova MD [address] [place] [address] Neural foraminal stenosis of lumbar spine Social [...] Description 10/27/2024 9:30 AM EDT Office Visit [facility] MED & PEDS [address] [place] [address] Arianna Castro MD [address] [place] [address] 11/14/2024 3:30 PM EDT Office Visit [facility] MED & PEDS [address] [place] [address] Abida Cordova MD [address] [facility] [place] [address] documented as of this encounter Visit Diagnoses Diagnosis Neural foraminal stenosis of lumbar spine documented in this encounter Care Teams Garage Laborer Relationship Specialty Start Date End Date Abida Cordova MD [address] [facility] [place] [address] PCP - General Internal Medicine 03/11/24 documented as of this encounter
--- OUTSIDE RECORDS SUMMARY | 2024-10-17 12:27 | XMS_ITS | Encounter Summary ---
Author Organization [employer] Address [address] [facility] 7 [place] [address] Care Team Providers Care Elementary School Music Teacher Name Role Phone Abida Cordova MD Primary Care Provider [phone] Reason for Visit * Reason Onset Date Comments Med Refill 10/03/2024 Encounter Details Date Type Department Care Team (Late st Contact Info) Description 10/03/2024 Telephone [facility] MED[facility] [address] [place] [address] Abida Cordova MD [address] [place] [address] Med Refill Social History Tobacco Use Types Packs/Day Years [...] AM EDT documented as of this encounter Miscellaneous Notes * Telephone Encounter - Socrates Avelar - 10/03/2024 8:52 AM EDT TC from pt requesting medication refill. Medications needing refill : oxyCODONE-acetaminophen (Percocet) 10-325 MG tablet To be sent to: [facility]/pharmacy #[id number] [facility] [phone] [place] [address] documented in this encounter Plan of Treatment Upcoming Encounters Date Type Department Care Team (Late st Contact Info) Description 10/27/2024 9:30 AM EDT Office Visit [facility] PED[facility] [address] [place] [address] Arianna Castro MD [address] [place] [address] 11/14/2024 3:30 PM EDT Office Visit [facility] PED[facility] [address] [place] [address] Abida Cordova MD [address] [place] [address] documented as of this encounter Visit Diagnoses Not on filedocumented in this encounter Additional Health Concerns Assessment Noted Time PHQ-9 Depression Total Score: 0 08/27/19 25 1:31 PM EDT documented as of this encounter Care Teams Elementary School Music Teacher Relationship Specialty Start Date End Date Abida Cordova MD [address] [place] [address] PCP - General Internal Medicine 03/11/24 documented as of this encounter
--- OUTSIDE RECORDS SUMMARY | 2024-10-17 12:27 | XMS_ITS | Encounter Summary ---
Author Organization [employer] Address [address] [facility] 7 [place] [address] Care Team Providers Care Pipe Washer Name Role Phone Abida Cordova MD Primary Care Provider [phone]- [phone] Reason for Visit * Reason Onset Date Comments Med Refill 08/10/2024 Encounter Details Date Type Department Care Team (Late st Contact Info) Description 08/10/2024 Telephone [facility] MEDICINE [address] [place] [address] Abida Cordova MD [address] [place] [address] Med Refill Social History Tobacco Use Types [...] encounter Miscellaneous Notes * Telephone Encounter - Kayley Szymanski - 08/10/2024 2:56 PM EDT TC from pt requesting medication refill. Medications needing refill : traMADol (Ultram) 50 MG tablet To be sent to: [facility]/pharmacy #[id number] [facility] [phone] [facility] documented in this encounter Plan of Treatment Upcoming Encounters Date Type Department Care Team (Late st Contact Info) Description 10/27/2024 9:30 AM EDT Office Visit [facility] MED & PEDS [address] [place] [address] Arianna Castro MD [address] [place] [address] 11/14/2024 3:30 PM EDT Office Visit [facility] MED & PEDS [address] [place] [address] Abida Cordova MD [address] [place] [address] documented as of this encounter Visit Diagnoses Not on filedocumented in this encounter Care Teams Pipe Washer Relationship Specialty Start Date End Date Abida Cordova MD [address] [place] [address] PCP - General Internal Medicine 03/11/24 documented as of this encounter
--- OUTSIDE RECORDS SUMMARY | 2024-10-17 12:27 | XMS_ITS | Encounter Summary ---
Author Organization [employer] [facility] Address [address] [place] [address] [address] [place] [address] Care Team Providers Care Package Collector Name Role Phone Abida Cordova MD Primary Care Provider [phone] Reason for Visit * Reason Comments Med Refill Encounter Details Date Type Department Care Team (Late Contact Info) Description 06/26/[address] [facility] MED & PEDS [address] [place] [address] Abida Cordova MD [address] [place] [address] Neural foraminal stenosis of lumbar spine Social [...] Description 10/27/2024 9:30 AM EDT Office Visit [facility] MED & PEDS [address] [place] [address] Arianna Castro MD [address] [place] [address] 11/14/2024 3:30 PM EDT Office Visit [facility] MED & PEDS [address] [place] [address] Abida Cordova MD [address] [place] [address] documented as of this encounter Visit Diagnoses Diagnosis Neural foraminal stenosis of lumbar spine documented in this encounter Care Teams Package Collector Relationship Specialty Start Date End Date Abida Cordova MD [address] [place] [address] PCP - General Internal Medicine 03/11/24 documented as of this encounter
--- OUTSIDE RECORDS SUMMARY | 2024-10-17 12:27 | XMS_ITS | Encounter Summary ---
Author Organization [employer] Address [address] [facility] 7t [place] [address] Care Team Providers Care Wheel Inspector Name Role Phone Abida Cordova MD Primary Care Provider [phone] Encounter Details Date Type Department Care Team (Late st Contact Info) Description 08/22/2024 Orders Only [facility] MEDICINE [address] [place] [address] Abida Cordova MD [address] [place] [address] Underweight (Primary Dx); Neural foraminal stenosis of lumbar spine Social [...] Description 10/27/2024 9:30 AM EDT Office Visit [facility] MED & PEDS [address] [place] [address] Arianna Castro MD [address] [place] [address] 11/14/2024 3:30 PM EDT Office Visit [facility] MED & PEDS [address] [place] [address] Abida Cordova MD [address] [place] [address] documented as of this encounter Visit Diagnoses Diagnosis Underweight- Primary Neural foraminal stenosis of lumbar spine documented in this encounter Care Teams Wheel Inspector Relationship Specialty Start Date End Date Abida Cordova MD [address] [place] [address] PCP - General Internal Medicine 03/11/24 documented as of this encounter
--- OUTSIDE RECORDS SUMMARY | 2024-10-17 12:27 | XMS_ITS | Encounter Summary ---
Author Organization [employer] Address [address] [facility] 7 [place] [address] Care Team Providers Care Farm Management Adviser Name Role Phone Abida Cordova MD Primary Care Provider [phone] Encounter Details Date Type Department Care Team (Late st Contact Info) Description 10/11/2024 Orders Only [facility] MED & PEDS [address] [place], [place] [id number] Abida Cordova MD [address] [place] [address] Neural foraminal stenosis of lumbar spine (Primary Dx) Social History Tobacco Use Types Packs/Day Years [...] Description 10/27/2024 9:30 AM EDT Office Visit [facility] MED & PEDS [address] [place] [address] Arianna Castro MD [address] [place] [address] 11/14/2024 3:30 PM EDT Office Visit [facility] MED & PEDS [address] [place] [address] Abida Cordova MD [address] [place] [address] documented as of this encounter Visit Diagnoses Diagnosis Neural foraminal stenosis of lumbar spine- Primary documented in this encounter Additional Health Concerns Assessment Noted Time PHQ-9 Depression Total Score: 0 08/27/19 25 1:31 PM EDT documented as of this encounter Care Teams Farm Management Adviser Relationship Specialty Start Date End Date Abida Cordova MD [address] [place] [address] PCP - General Internal Medicine 03/11/24 documented as of this encounter
--- OUTSIDE RECORDS SUMMARY | 2024-10-17 12:27 | XMS_ITS | Encounter Summary ---
Author Organization [employer] Address [address] [facility] 7 [place] [address] Care Team Providers Care Production Mechanic Tin Cans Name Role Phone Abida Cordova MD Primary Care Provider [phone] Reason for Visit * Reason Onset Date Comments Med Refill 09/22/2024 Encounter Details Date Type Department Care Team ([facility] st Contact Info) Description 09/22/2024 Telephone [facility] CHC MED & PEDS [address] [place] [address] Abida Cordova MD [address] [place] [address] Med Refill Social History Tobacco Use Types [...] encounter Miscellaneous Notes * Telephone Encounter - Ann Marie Salazar RN - 09/22/2024 8:41 AM EDT Pt requesting refill of Percocet 10-325, your note on 09/13/24 stated for up to 5 days . Pt filled 4 days supply on 09/18. Is the Tramadol being discontinued? Please advise. documented in this encounter Plan of Treatment Upcoming Encounters Date Type Department Care Team ([facility] st Contact Info) Description 10/27/2024 9:30 AM EDT Office Visit [facility] MED & PEDS [address] [place] [address] Arianna Castro MD [address] [place] [address] 11/14/2024 3:30 PM EDT Office Visit [facility] MED & PEDS [address] [place] [address] Abida Cordova MD [address] [place] [address] documented as of this encounter Visit Diagnoses Not on filedocumented in this encounter Additional Health Concerns Assessment Noted Time PHQ-9 Depression Total Score: 0 08/27/19 25 1:31 PM EDT documented as of this encounter Care Teams Production Mechanic Tin Cans Relationship Specialty Start Date End Date Abida Cordova MD [address] [place] [address] PCP - General Internal Medicine 03/11/24 documented as of this encounter
--- OUTSIDE RECORDS SUMMARY | 2024-10-17 12:27 | XMS_ITS | Encounter Summary ---
Author Organization [employer] Address [address] [facility] 7 [place] [address] Care Team Providers Care Epic Kaleidoscope Analyst Name Role Phone Abida Cordova MD Primary Care Provider [phone] Reason for Visit * Reason Onset Date Comments Medication Question 09/15/2024 Encounter Details Date Type Department Care Team ([facility] Contact Info) Description 09/15/2024 Telephone [facility] CHC MED & PEDS [address] [place] [address] Abida Cordova MD [address] [place] [address] Medication Question Social History Tobacco Use Types Packs/Day Years [...] encounter Miscellaneous Notes * Telephone Encounter - Diane Simon - 09/15/2024 1:33 PM EDT Tc from pt stating he was advised by PCP to call if medication oxyCODONE- acetaminophen (Percocet) 10-325 MG tablet is not helping with pain. Pt requesting alternative. Contact pt at [phone] documented in this encounter Plan of Treatment Upcoming Encounters Date Type Department Care Team (Late st Contact Info) Description 10/27/2024 9:30 AM EDT Office Visit [facility] MED & PEDS [address] [place] [address] Arianna Castro MD [address] [place] [address] 11/14/2024 3:30 PM EDT Office Visit [facility] MED & PEDS [address] [place] [address] Abida Cordova MD [address] [place] [address] documented as of this encounter Visit Diagnoses Not on filedocumented in this encounter Additional Health Concerns Assessment Noted Time PHQ-9 Depression Total Score: 0 08/27/19 1:31 PM EDT documented as of this encounter Care Teams Epic Kaleidoscope Analyst Relationship Specialty Start Date End Date Abida Cordova MD [address] [place] [address] PCP - General Internal Medicine 03/11/24 documented as of this encounter
--- OUTSIDE RECORDS SUMMARY | 2024-10-17 12:27 | XMS_ITS | Encounter Summary ---
Author Organization [employer] Address [address] [facility] 7t [place] [address] Care Team Providers Care Suture Winder Hand Name Role Phone Abida Cordova MD Primary Care Provider [phone] Encounter Details Date Type Department Care Team (Late st Contact Info) Description 09/15/2024 Orders Only [facility] CHC MED & PEDS [address] [place], [place] [id number] Abida Cordova MD [address] [place] [address] Claudication (CMS/HCC); Sciatica, left side Social History Tobacco Use [...] Description 10/27/2024 9:30 AM EDT Office Visit [facility] MED & PEDS [address] [place] [address] Arianna Castro MD [address] [place] [address] 11/14/2024 3:30 PM EDT Office Visit [facility] MED & PEDS [address] [place] [address] Abida Cordova MD [address] [place] [address] documented as of this encounter Visit Diagnoses Diagnosis Claudication ([facility]) Unspecified peripheral vascular disease Sciatica, left side documented in this encounter Additional Health Concerns Assessment Noted Time PHQ-9 Depression Total Score: 0 08/27/19 25 1:31 PM EDT documented as of this encounter Care Teams Suture Winder Hand Relationship Specialty Start Date End Date Abida Cordova MD [address] [place] [address] PCP - General Internal Medicine 03/11/24 documented as of this encounter
--- OUTSIDE RECORDS SUMMARY | 2024-10-17 12:27 | XMS_ITS | Clinical Summary ---
Author Organization [facility] it Address [address] [place] [address] Care Team Providers Care Paper Cone Drying Machine Operator Name Role Phone Sue Corey MD Primary Care Provider Surgical History Surgery Date Site/Laterality Comments OTHER SURGICAL HISTORY PROCEDURE: DENIES PREVIOUS SURGERY Family History Medical History Relation Name Comments Diabetes Maternal Grandmother Relation Name Status Comments Maternal Grandmother Social History Tobacco Use Types Packs/Day Years Used Date Smoking Tobacco: Former Cigarettes Q uit: 07/28/1998 Smokeless Tobacco: Never Alcohol Use Standard Drinks/Week Comments No 0 (1 standard drink = 0.6 oz pur e alcohol) Sex and Gender Information Value Date Recorded Sex Assigned at Male 06/07/2024 8:57 PM EST Legal Sex Male 1:51 AM EST Gender Identity Male 06/07/2024 8:57 PM EST Sexual Orientation Straight 06/07/2024 8: 57 PM EST Obstetrics History Last Filed Vital Signs Vital Sign Reading Time Taken Comments Blood Pressure 128/58 01/31/2024 1:11 PM EDT Pulse 75 01/31/2024 1:11 PM EDT Temperature - - Respiratory Rate - - Oxygen Saturation - - Inhaled Oxygen Concentration - - Weight - - Height - - Body Mass Index - - Plan of Treatment Health Maintenance Due Date Last Done Comments DTaP,Tdap,and Td Vaccines (1 - Tdap) 02[birth year]05/1972 Pneumococcal Vaccine: 50+ Ye ars (1 of 1 - PCV) 2003 Zoster Vaccines (1 of 2) 2003 COVID-19 Vaccine ( - 2023-2 5 season) 2024 Abdominal Aortic Aneurysm (A AA) Screen 03/13/2024 Cholesterol Screening (Lipid Panel) 03/13/2024 Colorectal Cancer Screening: Colonoscopy 03/13/2024 Depression Screening 03/13/2024 Falls Risk Assessment 03/13/2024 Hepatitis C Screening 03/13/2024 Social Influencers of Health Screening 03/13/2024 Influenza Vaccine (Season Ended) 2025 RSV Immunization Adult Patie nts (1 - 1-dose 75+ series) 02/05/2028 HIB Vaccines Aged Out No longer eligi [...] on patient's age to complete this topic MMR Vaccines Aged Out No longer eligi ble based on patient's age to complete this topic Meningococcal ACWY Vaccine Aged Out N o longer eligible based on patient's age to complete this topic Meningococcal B Vaccine Aged Out No l onger eligible based on patient's age to complete this topic RSV Immunization Patients Un ángela 20 months Aged Out No longer eligible b ased on patient's age to complete this topic Varicella Vaccines Aged Out No longer eligible based on patient's age to complete this topic Care Teams Paper Cone Drying Machine Operator Relationship Specialty Start Date End Date Sue Corey MD [address] [place] [id number] PCP - General Internal Medicine 07/22/18
--- OUTSIDE RECORDS SUMMARY | 2024-10-17 12:27 | XMS_ITS | Encounter Summary ---
Author Organization [employer] Address [address] [place] [address] [place], [place] [address] Care Team Providers Care Security Services Specialist Name Role Phone Abida Cordova MD Primary Care Provider [phone] Reason for Referral * Imaging (Routine) - Closed Specialty Diagnoses / Procedures Referred By Contac t Referred To Contact Cardiology Diagnoses Bilateral leg edema Procedures Transthoracic Echo (TTE) Complete Abida Cordova MD [address] [place] [address] Phone: tel: fax: [address] Phone: tel: fax: Referral ID Status Reason Start Date Expiration Date V isits Requested Visits Authorized [id number] Closed Perform Procedure 06/03/2024 06/03/2025 1 1 Encounter Details Date Type Department Care Team (Late st Contact Info) Description 06/03/2024 Orders Only [facility] CHC MED & PEDS [address] [place] [address] Abida Cordova MD [address] [place] [address] Bilateral leg edema (Primary Dx) Social History Tobacco Use Types [...] Description 10/27/2024 9:30 AM EDT Office Visit [facility] MED & PEDS [address] [place] [address] Arianna Castro MD [address] [place] [address] 11/14/2024 3:30 PM EDT Office Visit [facility] MED & PEDS [address] [place] [address] Abida Cordova MD [address] [place] [address] Scheduled Orders Name Type Priority Associated Diagnoses Order Schedule Transthoracic Echo (TTE) Complete Echocardiography Routine Bilateral leg edema Expected: 06/03/2024 (Approximate), Expires: 06/03/2026 documented as of this encounter Visit Diagnoses Diagnosis Bilateral leg edema- Primary Edema documented in this encounter Care Teams Security Services Specialist Relationship Specialty Start Date End Date Abida Cordova MD [address] [place] [address] PCP - General Internal Medicine 03/11/24 documented as of this encounter
--- OUTSIDE RECORDS SUMMARY | 2024-10-17 12:27 | XMS_ITS | Continuity of Care Document ---
Author Organization [facility] Address [address] [place] [address]- Care Team Providers Care Oral Surgeon Name Role Phone Abida Cordova MD Primary Care Physician Encounter [facility] [id number] Date(s): 06/14/24 - 10/12/24 [facility] [address] [place] [address]- Attending Physician: Jorden Lr MD Admitting Physician: Jorden Lr MD Referring Physician: Abida Cordova MD Encounter Type: Pre-OutPatient One Time Allergies, Adverse Reactions, Alerts No Known Allergies Medications amLODIPine 5 mg oral tablet 0 Refills, Maintenance, 08/16/24 7:48:00 AM EDT, Partial fill upon patient request if the prescription is for a schedule II opioid drug. Start Date: 08/16/24 Status: Ordered Repeat number: 1 celecoxib 200 mg oral capsule 1 capsule = 200 mg, By Mouth, 2 times a day, 0 Refills, Maintenance, 04/25/24 9:57:00 AM EST, Partial fill upon patient request if the prescription is for a schedule II opioid drug. Start Date: 04/25/24 Status: Ordered Repeat number: 1 cilostazol 100 mg oral tablet 1 tablet = 100 mg, By Mouth, 2 times a day, # 180 tablet, 0 Refills, Maintenance, 08/16/24 7:48:00 AM EDT, Tablet, Partial fill upon patient request if the prescription is for a schedule II opioid drug. Start Date: 08/16/24 Status: Ordered Quantity: 180.0 Unit: tablet Repeat number: 1 ferrous sulfate 324 mg (65 mg elemental iron) oral delayed release tablet 1 tablet = 324 mg, 0 Refills, Maintenance, 04/25/24 9:56:00 AM EST, Partial fill upon patient request if the prescription is for a schedule II opioid drug. Start Date: 04/25/24 Status: Ordered Repeat number: 1 gabapentin 100 mg oral capsule 200 mg, 2, capsule, By Mouth, 2 times a day, # 120 capsule, Refills 0, Maintenance, 08/16/24 7:48:00AM EDT, Partial fill upon patient request if the prescription is for a schedule II opioid drug. Start Date: 08/16/24 Status: Ordered Quantity: 120.0 Unit: capsule Repeat number: 1 meloxicam 15 mg oral tablet 1 tablet = 15 mg, By Mouth, Daily, # 30 tablet, 0 Refills, Maintenance, 08/16/24 7:47:00 AM EDT, Tablet, Partial fill upon patient request if the prescription is for a schedule II opioid drug. Start Date: 08/16/24 Status: Ordered Quantity: 30.0 Unit: tablet Repeat number: 1 Multivitamin 0 Refills, Maintenance, 04/25/24 9:57:00 AM EST, Partial fill upon patient request if the prescription is for a schedule II opioid drug. Start Date: 04/25/24 Status: Ordered Repeat number: 1 Tizanidine By Mouth, Refills 0, Maintenance, 08/16/24 7:46:00 AM EDT, Partial fill upon patient request if the prescription is for a schedule II opioid drug. Start Date: 08/16/24 Status: Ordered Repeat number: 1 traMADol 50 mg oral tablet 1 tablet = 50 mg, By Mouth, Every 12 hours, PRN as needed for pain, 0 Refills, Maintenance, :47:00 AM EDT, Tablet, Partial fill upon patient request if the prescription is for a schedule II opioid drug. Start Date: 08/16/24 Status: Ordered Repeat number: 1 Vitamin D3 oral tablet 1 tablet = 10 mcg, By Mouth, Daily, # 30 tablet, 0 Refills, Maintenance, 04/25/24 9:57:00 AM EST, Tablet, Partial fill upon patient request if the prescription is for a schedule II opioid drug. 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 Lower back pain Confirmed Active Microcytic anemia Confirmed Active Neurogenic claudication Confirmed Active Left sided sciatica Confirmed Active Underweight Confirmed Active Social History Social History Type Response Smoking Status Former smoker, quit more than 30 days ago entered on: 07/28/24 Sex Sex Representation Male (finding) Patient Care team information Care Team Personnel Name: Abida Cordova MD Position: [facility] Outreach Member Role: PCP Address: [address] [place] [address] Telecom: Care Team Related Persons Name: NICOLE LEO Insurance Providers Guarantor name: KARTIK LEO Health Plan Information #: 1 Payer: [employer] PPO Member Number: [id number] Policy Number: NA Group Number: [id number] Health Plan Information #: 2 Payer: NA Member Number: [id number] Policy Number: NA Group Number: [id number]
[2024-10-17 14:27] LABS: MANUAL DIFF FLAG NO
[2024-10-17 14:37] LABS: Basophils Absolute Auto 0.1 X10*3/uL (0.0-0.2); Basophils Percent Auto 0.5 % (0-2); Eosinophils Percent Auto 0.1 % (0-4); Hematocrit 29.5 % (42.0-52.0); Hemoglobin 9.6 g/dl (14.0-18.0); Imm Gran Abs Auto 0.03 X10*3/uL (0.00-0.03); Imm Gran Pct Auto 0.3 % (0.0-0.4); Lymphocytes Absolute Auto 1.2 X10*3/uL (1.2-4.9); Lymphocytes Percent Auto 12.4 % (20-40); Mean Corpuscular HGB Conc 32.5 g/dl (31.0-36.0); Mean Corpuscular Hemoglobin 30.6 pg (27.0-33.0); Mean Corpuscular Volume 93.9 fL (80.0-98.0); Mean Platelet Volume 9.2 fL (9.4-12.4); Monocytes Absolute Auto 0.9 X10*3/uL (0.1-1.2); Monocytes Percent Auto 9.5 % (2-11); Neutrophils Absolute Auto 7.5 x10*3/uL (2.0-8.3); Neutrophils Percent Auto 77.2 % (45-73); Platelet Count 540 X10*3/uL (160-400); Red Blood Count 3.14 X10*6/uL (4.60-5.80); Red Cell Distribution Width 14.8 % (11.0-16.0); White Blood Count 9.8 X10*3/uL (4.8-10.8)
[2024-10-17 14:46] LABS: Prothrombin Time 11.6 SEC (10.9-12.4)
[2024-10-17 14:59] LABS: Alanine Aminotransferase 41 U/L (0-40); Albumin Level 3.6 g/dL (3.5-5.0); Alkaline Phosphatase 44 U/L (39-117); Anion Gap 12 (12-20); Aspartate Amino Transferase 45 U/L (5-37); Bilirubin Total 0.2 mg/dL (0.0-1.0); Blood Urea Nitrogen 13 mg/dL (9-16); Calcium 9.2 mg/dL (8.4-10.2); Carbon Dioxide 28 mmol/L (22-29); Chloride 103 mmol/L (96-108); Estimated Glomerular Filt Rate > 60; Glucose Random 88 mg/dL (60-115); Potassium 3.7 mmol/L (3.3-5.1); Sodium 139 mmol/L (135-145); Total Protein 7.5 g/dL (6.5-8.0)
== END 2024-10-17 11:40 | disposition home or self-care (01) ==
LOC: HO.CHCLDS 11:39
PROVIDERS: Visit Provider Internal Medicine
DX: I73.9 Peripheral vascular disease, unspecified (principal)
CPT/HCPCS: 36415; 80053; 85025; 85610